=== PATIENT | male | born 1940 | race Hispanic/Latino ===

== ENCOUNTER → 2017-07-10 | Outpatient (CLI) | payer MEDICARE | END | disposition home or self-care (01) | LOC: RAH 12:58 | PROVIDERS: ATTEND Family Medicine | DX: R60.0 Localized edema (principal) | CPT/HCPCS: 93971 ==

== ENCOUNTER → 2017-08-03 | Outpatient (CLI) | payer MEDICARE | END | disposition home or self-care (01) | LOC: RAH 10:15 | PROVIDERS: ATTEND Urology | DX: K80.20 Calculus of gallbladder without cholecystitis without obstruction (principal); Z93.3 Colostomy status | CPT/HCPCS: 74176 ==

== ENCOUNTER 2018-08-01 10:54 | Emergency (ER) | payer MEDICARE | END 2018-08-01 11:58 | disposition home or self-care (01) | LOC: EDH 10:54 | DX: T83.098A Other mechanical complication of other urinary catheter, initial encounter (principal); R33.9 Retention of urine, unspecified; I10 Essential (primary) hypertension; E78.5 Hyperlipidemia, unspecified; Z90.49 Acquired absence of other specified parts of digestive tract; Z98.890 Other specified postprocedural states; Z87.891 Personal history of nicotine dependence | CPT/HCPCS: 51702 ==

== ENCOUNTER → 2018-08-13 | Outpatient (CLI) | payer MEDICARE ==
[2018-08-13 13:09] LABS: CREATININE 0.9 mg/dL (0.5-1.5); POTASSIUM 3.8 mmol/L (3.5-5.1)
== END | disposition home or self-care (01) ==
LOC: RAH 10:23
PROVIDERS: ATTEND Urology
DX: R33.8 Other retention of urine (principal)
CPT/HCPCS: 36415; 80048

== ENCOUNTER → 2018-09-10 | Outpatient (CLI) | payer MEDICARE ==
[~2018-09-10] MED LIST: IOHEXOL-350 75 ML VIAL IV ONE
== END | disposition home or self-care (01) ==
LOC: RAH 09:30
PROVIDERS: ATTEND Urology
DX: R33.8 Other retention of urine (principal); M47.816 Spondylosis without myelopathy or radiculopathy, lumbar region; Z93.3 Colostomy status
CPT/HCPCS: 74178; Q9967

== ENCOUNTER → 2018-09-23 | Outpatient (CLI) | payer MEDICARE | END | disposition home or self-care (01) | LOC: RAH 12:56 | PROVIDERS: ATTEND Family Medicine | DX: M79.89 Other specified soft tissue disorders (principal) | CPT/HCPCS: 93971 ==